=== PATIENT | male | born 1965 | race Caucasian/White ===

== ENCOUNTER 2019-03-05 00:42 | Emergency (ER) | payer OTHER ==
[~2019-03-05] VITALS: Ht 180.3 cm; Wt 111.1 kg
--- NOTE | 2019-03-05 01:12 | NUR ---
BIB FOR C/O R HAND LACERATION S/P CUT W/ A PIECE OF GLASS TO ER BED 2 VSS, AWAITING MED EVAL
[2019-03-05] MEDS ORDERED: TDAP [DIPH/PERTUSSIS/TET] 0.5 ML VIAL IM ONE ×2 (01:27→01:30)
[2019-03-05] MEDS ORDERED: LIDOCAINE HCL/MPF 1% 30 ML VIAL IJ ONE (01:53)
--- NOTE | 2019-03-05 02:48 | NUR ---
Patient discharged to home in stable condition. Written and verbal after care instructions given. Patient verbalizes understanding of instruction.
[2019-03-05 02:49] VITALS: BP 157/97
== END 2019-03-05 02:49 | disposition home or self-care (01) ==
LOC: ER 00:43
DX: S61.210A Laceration without foreign body of right index finger without damage to nail, initial encounter (principal); E11.9 Type 2 diabetes mellitus without complications; Z98.890 Other specified postprocedural states; W25.XXXA Contact with sharp glass, initial encounter; Y93.G1 Activity, food preparation and clean up; Y92.89 Other specified places as the place of occurrence of the external cause; Y99.8 Other external cause status
CPT/HCPCS: 12002; 73130; 90471; 90715; 99283; J3490